=== PATIENT | female | born 1955 | race Caucasian/White ===

== ENCOUNTER 2016-08-22 21:02 | Emergency (ER) | payer OTHER ==
[~2016-08-22] VITALS: Ht 177.8 cm; Wt 78.0 kg
[~2016-08-22 21:02] MED LIST: AMOX1TAB61 PO; HYDR-3240 PO
[2016-08-22] MEDS ORDERED: ASPIRIN 81 MG TABLET CHEW ONE (22:46)
[2016-08-22] MEDS ORDERED: ASPIRIN 81 MG TABLET CHEW PO ONE (23:00)
[2016-08-22] MEDS ORDERED: SODIUM CHLORIDE FLUSH 10ML SYR IVF ONE (23:00)
[2016-08-22 23:20] LABS: BLOOD UREA NITROGEN 24 mg/dL (7-18)
[2016-08-22 23:24] LABS: IS PT STATUS REG ER OR PRE ER? YES
[2016-08-22 23:34] VITALS: BP 100/49
== END 2016-08-23 00:36 | disposition home or self-care (01) ==
LOC: ED 22:25
DX: K21.9 Gastro-esophageal reflux disease without esophagitis (principal); R07.89 Other chest pain; Z90.710 Acquired absence of both cervix and uterus; Z87.891 Personal history of nicotine dependence
CPT/HCPCS: 36415; 71010; 80048; 82040; 84484; 85025; 93005

== ENCOUNTER 2018-10-13 08:50 | Emergency (ER) | payer OTHER ==
[~2018-10-13] VITALS: Ht 172.7 cm; Wt 80.4 kg
--- NOTE | 2018-10-13 09:41 | NUR ---
NO ANSWER IN LOBBY
--- NOTE | 2018-10-13 09:44 | NUR ---
UA COLLECTED AND SENT TO LAB IN TRIAGE.
[2018-10-13 09:57] LABS: BASOPHILS # (AUTO) 0.05 x10^3/uL (0-0.1); BASOPHILS % (AUTO) 1 % (0-1); EOSINOPHILS # (AUTO) 0.03 x10^3/uL (0-0.4); EOSINOPHILS % (AUTO) 1 % (1-7); LYMPHOCYTES # (AUTO) 1.86 x10^3/uL (1-3.4); LYMPHOCYTES % (AUTO) 32 % (22-44); MD NO; MEAN CORPUSCULAR HEMOGLOBIN 29.9 pg (27.0-34.8); MEAN CORPUSCULAR VOLUME 90.8 fL (80-100); MEAN PLATELET VOLUME 8.9 fL (7.4-10.4); MONOCYTES # (AUTO) 0.46 x10^3/uL (0.2-0.8); MONOCYTES % (AUTO) 8 % (2-9); NEUTROPHILS # (AUTO) 3.33 x10^3/uL (1.8-6.8); NEUTROPHILS % (AUTO) 58 % (42-75); PLATELET COUNT 232 x10^3/uL (130-400); RED CELL DISTRIBUTION WIDTH 13.4 % (9.6-15.2)
--- NOTE | 2018-10-13 09:57 | NUR ---
PT TO ED FOR LLQ ABD PAIN AFTER LIFITING A HEAVY OBJECT 2 WEEKS AGO. DENIES N/V/D AND FEVER. CONNECTED TO MONITORS. VSS. LABS, UA ANS US COMPLETE. AWAITING RESULTS. NO NEEDS EXPRESSED. CALL LIGHT WITHIN REACH. Addendum: 10/13/18 at 1002 by [email or web address] PT TO ED FOR LLQ ABD PAIN AFTER LIFITING A HEAVY OBJECT 2 WEEKS AGO. DENIES N/V/D AND FEVER. CONNECTED TO MONITORS. VSS. LABS, UA AND XR COMPLETE. AWAITING RESULTS. NO NEEDS EXPRESSED. CALL LIGHT WITHIN REACH.
[2018-10-13 09:58] LABS: MICROSCOPIC NOT IND
[2018-10-13 10:01] LABS: CULTURE INDICATED? NO
[2018-10-13 10:02] LABS: ALBUMIN 4.3 g/dL (3.4-5.0); ANION GAP 5 mmol/L (5-15); CALCIUM 8.9 mg/dL (8.5-10.1); CHLORIDE 109 mmol/L (98-107); CREATININE 0.79 mg/dL (0.55-1.02)
[2018-10-13 10:05] LABS: ALANINE AMINOTRANSFERASE 26 U/L (12-78); ALKALINE PHOSPHATASE 98 U/L (45-117); BILIRUBIN,TOTAL 0.8 mg/dL (0.2-1.0); TOTAL PROTEIN 7.4 g/dL (6.4-8.2)
--- NOTE | 2018-10-13 10:10 | NUR ---
EDMD TO BS FOR ASSESSMENT. AWAITING ORDERS. VSS.
--- NOTE | 2018-10-13 10:36 | NUR ---
PT BACK FROM CT.
[2018-10-13] MEDS ORDERED: OMNIPAQUE 350 MG/ML, 100ML BOTTLE ONE (10:37)
[2018-10-13 11:20] VITALS: BP 102/56
--- NOTE | 2018-10-13 11:20 | NUR ---
PT RESTING IN ROOM. VSS. NO NEEDS EXPRESSED. CALL LIGHT WITHIN REACH. CHART UP FOR RECHECK.
--- NOTE | 2018-10-13 11:27 | NUR ---
EDMD TO BS TO UPDATE ON POC. PLAN TO DC.
== END 2018-10-13 12:09 | disposition home or self-care (01) ==
LOC: ED 11:21
DX: S39.011A Strain of muscle, fascia and tendon of abdomen, initial encounter (principal); R10.32 Left lower quadrant pain; X58.XXXA Exposure to other specified factors, initial encounter; Y93.89 Activity, other specified; Y92.89 Other specified places as the place of occurrence of the external cause; Y99.8 Other external cause status
CPT/HCPCS: 36415; 74021; 74177; 80053; 81003; 83690; 85025; 99284; Q9967